=== PATIENT | female | born 1945 | race Hispanic/Latino ===

== ENCOUNTER 2018-09-06 09:14 | Day surgery (SDC) | payer MEDICARE ==
[~2018-09-06] VITALS: Ht 162.6 cm; Wt 68.5 kg
[~2018-09-06 09:14] MED LIST: GLIP2.5T17 PO; METF-444 PO; METO-391 PO; OMEP40CA37 PO; SIMV10TA6 PO; SODIUM CHLORIDE 0.9% 1000ML 1,000 ML IV ONE
[2018-09-06 10:03] VITALS: BP 118/70
[2018-09-06] MEDS ORDERED: PROPOFOL 1000 MG/100 ML 100 ML IV ONE (11:02)
[2018-09-06 11:52] VITALS: BP 110/66
[2018-09-06 11:55] VITALS: BP 106/61
[2018-09-06 12:00] VITALS: BP 106/65
[2018-09-06 12:05] VITALS: BP 116/74
[2018-09-06 12:10] VITALS: BP 125/88
== END 2018-09-06 12:40 | disposition home or self-care (01) ==
LOC: ENDO 09:14 → DAH 09:14 → ENDO 12:40
PROVIDERS: ATTEND Internal Medicine
DX: Z12.11 Encounter for screening for malignant neoplasm of colon (principal); K57.30 Diverticulosis of large intestine without perforation or abscess without bleeding; D12.4 Benign neoplasm of descending colon; K63.5 Polyp of colon; K29.50 Unspecified chronic gastritis without bleeding; K31.89 Other diseases of stomach and duodenum; Z80.0 Family history of malignant neoplasm of digestive organs; K21.9 Gastro-esophageal reflux disease without esophagitis; I10 Essential (primary) hypertension; E11.9 Type 2 diabetes mellitus without complications; Z98.890 Other specified postprocedural states; Z79.899 Other long term (current) drug therapy; E78.5 Hyperlipidemia, unspecified
CPT/HCPCS: 43237; 43239; 45380; 82948 ×2; 88305; 88342; A4606; J2704; J7030; 43231